=== PATIENT | male | born 1970 | race Two or more races ===

== ENCOUNTER 2019-10-21 14:27 | Emergency (ER) | payer OTHER ==
[~2019-10-21] VITALS: Ht 188 cm; Wt 86.6 kg
[2019-10-21] MEDS ORDERED: CRESTOR5 MG PO (14:44)
[2019-10-21] MEDS ORDERED: TRICOR48 MG (14:44)
[2019-10-21] MEDS ORDERED: HORIZANT300 MG PO (14:45)
[2019-10-21] MEDS ORDERED: PREZCOBIX 8001 EACH PO (14:45)
[2019-10-21] MEDS ORDERED: CLONAZEPAM0.5 MG PO (14:45)
[2019-10-21] MEDS ORDERED: TIVICAY50 MG PO (14:46)
== END 2019-10-21 16:16 | disposition home or self-care (01) ==
LOC: ER 14:27
DX: B20 Human immunodeficiency virus [HIV] disease (principal); T21.13XA Burn of first degree of upper back, initial encounter; X19.XXXA Contact with other heat and hot substances, initial encounter; Y93.89 Activity, other specified; Y92.59 Other trade areas as the place of occurrence of the external cause; Y99.8 Other external cause status